=== PATIENT | female | born 1985 | race Caucasian/White ===

== ENCOUNTER 2017-08-16 08:56 | Emergency (ER) | payer MEDICAID ==
[~2017-08-16] VITALS: Ht 157.5 cm; Wt 102.1 kg
[2017-08-16 09:13] VITALS: BP 98/60
[2017-08-16] MEDS ORDERED: IPRATROPIUM BROM 0.5 MG/2.5ML INH SOL NEB ONE (09:30)
[2017-08-16] MEDS ORDERED: ALBUTEROL SULF 2.5 MG/0.5ML(0.5%) NEB SOLN NEB ONE (09:30)
== END 2017-08-16 10:21 | disposition home or self-care (01) ==
LOC: ER 08:56
DX: J40 Bronchitis, not specified as acute or chronic (principal); J45.909 Unspecified asthma, uncomplicated
CPT/HCPCS: 71020; 94640

== ENCOUNTER 2018-08-04 22:10 | Emergency (ER) | payer MEDICAID ==
[~2018-08-04] VITALS: Ht 157.5 cm; Wt 99.8 kg
[2018-08-04 22:42] VITALS: BP 116/70
[2018-08-04] MEDS ORDERED: cefTRIAXone SOD 1,000 MG VL IM ONE (23:30)
[2018-08-04] MEDS ORDERED: methylPREDNISolone SOD SUCC 125 MG/2 ML VL IM ONE (23:30)
== END 2018-08-04 23:57 | disposition home or self-care (01) ==
LOC: ER 22:10
DX: T78.49XA Other allergy, initial encounter (principal); R21 Rash and other nonspecific skin eruption; J45.909 Unspecified asthma, uncomplicated; X58.XXXA Exposure to other specified factors, initial encounter
CPT/HCPCS: 96372; 99284; J0696; J2930

== ENCOUNTER 2018-09-17 20:22 | Emergency (ER) | payer MEDICAID ==
[~2018-09-17] VITALS: Ht 157.5 cm; Wt 99.8 kg
[2018-09-17 20:57] VITALS: BP 122/74
== END 2018-09-17 23:00 | disposition home or self-care (01) ==
LOC: ER 20:22
DX: M54.41 Lumbago with sciatica, right side (principal); J45.909 Unspecified asthma, uncomplicated
CPT/HCPCS: 72131

== ENCOUNTER 2019-01-01 14:40 | Emergency (ER) | payer MEDICAID ==
[~2019-01-01] VITALS: Ht 157.5 cm; Wt 99.8 kg
[2019-01-01 14:45] VITALS: BP 154/87
[2019-01-01] MEDS ORDERED: ALBUTEROL SULF 2.5 MG/0.5ML(0.5%) NEB SOLN NEB ONE (19:30)
[2019-01-01] MEDS ORDERED: IPRATROPIUM BROM 0.5 MG/2.5ML INH SOL NEB ONE (19:30)
[2019-01-01] MEDS ORDERED: methylPREDNISolone SOD SUCC 125 MG/2 ML VL IM ONE (19:45)
== END 2019-01-01 20:19 | disposition home or self-care (01) ==
LOC: ER 14:47
DX: J20.9 Acute bronchitis, unspecified (principal)
CPT/HCPCS: 71046; 94640; 96372; 99283; J2930; J7611; J7644

== ENCOUNTER 2019-01-09 14:22 | Emergency (ER) | payer MEDICAID ==
[~2019-01-09] VITALS: Ht 157.5 cm; Wt 99.8 kg
[2019-01-09] MEDS ORDERED: ALBUTEROL SULF 2.5 MG/0.5ML(0.5%) NEB SOLN NEB ONE ×2 (14:45→19:15)
[2019-01-09] MEDS ORDERED: IPRATROPIUM BROM 0.5 MG/2.5ML INH SOL NEB ONE ×2 (14:45→19:15)
[2019-01-09] MEDS ORDERED: KETOROLAC TROMETH 60MG/2ML VIAL IM ONE (19:15)
[2019-01-09] MEDS ORDERED: methylPREDNISolone SOD SUCC 125 MG/2 ML VL IM ONE (19:15)
[2019-01-09] MEDS ORDERED: cefTRIAXone SOD 1,000 MG VL IM ONE (19:15)
[2019-01-09 19:53] VITALS: BP 124/55
== END 2019-01-09 20:03 | disposition home or self-care (01) ==
LOC: ER 14:28
DX: J40 Bronchitis, not specified as acute or chronic (principal); R51 Headache
CPT/HCPCS: 71046; 94640; 96372; 99284; J0696; J1885; J2930; J7611; J7644

== ENCOUNTER 2019-10-04 19:15 | Emergency (ER) | payer MEDICAID ==
[~2019-10-04] VITALS: Ht 157.5 cm; Wt 99.8 kg
[2019-10-04 19:34] VITALS: BP 118/64
[2019-10-04] MEDS ORDERED: DexAMETHasone SOD PHOS 10MG/1ML VIAL INJ IM ONE (21:00)
[2019-10-04] MEDS: IPRATROPIUM BROM 0.5 MG/2.5ML INH SOL NEB ONE ×2 (21:01→21:24)
[2019-10-04] MEDS: ALBUTEROL SULF 2.5 MG/0.5ML(0.5%) NEB SOLN NEB ONE ×2 (21:01→21:24)
[2019-10-04] MEDS: ACETAMINOPHEN/CODEINE#3 (300/30mg) TAB PO ONE ×2 (21:34→21:43)
== END 2019-10-04 21:35 | disposition home or self-care (01) ==
LOC: ER 19:15
DX: J45.901 Unspecified asthma with (acute) exacerbation (principal); J06.9 Acute upper respiratory infection, unspecified
CPT/HCPCS: 94640; 96372; 99283; J1100; J7611; J7644

== ENCOUNTER 2023-03-21 10:33 | Emergency (ER) | payer MEDICAID ==
[~2023-03-21] VITALS: Ht 157.5 cm; Wt 100.2 kg
[2023-03-21] MEDS ORDERED: HYDROcodone-ACET 5/325MG TAB PO ONE (11:00)
[2023-03-21] MEDS ORDERED: SODIUM CHLORIDE 0.9% 1,000 ML IV ONE (11:00)
[2023-03-21] MEDS ORDERED: ONDANSETRON ODT 4 MG TAB PO ONE (11:00)
[2023-03-21 11:13] LABS: Urine Bacteria FEW /hpf (None Seen); Urine Blood Negative /uL (Negative); Urine Mucus FEW (None Seen); Urine Specific Gravity 1.021 (1.001-1.035); Urine WBC 3 /hpf (0 - 5)
[2023-03-21 11:32] LABS: Basophils # (auto) 0 10 ^3/uL (0-0.2); Basophils % (auto) 0.3 % (0.0-2.0); Eosinophils # (auto) 0.2 10 ^3/uL (0-0.8); Eosinophils % (auto) 2.3 % (0.0-7.0); Hematocrit 44.1 % (36.0-46.0); Hemoglobin 14.8 g/dL (12.2-16.2); Lymphocytes # (auto) 1.7 10 ^3/uL (0.4-5.4); Lymphocytes % (auto) 19.4 % (10.0-50.0); Mean Corpuscular Hemoglobin 30.7 pg (28.0-32.0); Mean Corpuscular Hgb Conc. 33.5 g/dL (32.0-36.0); Mean Corpuscular Volume 91.7 fL (80.0-100.0); Monocytes # (auto) 0.5 10 ^3/uL (0-1.3); Monocytes % (auto) 5.3 % (0.0-12.0); Neutrophils # (auto) 6.3 10 ^3/uL (1.6-8.6); Neutrophils % (auto) 72.7 % (37.0-80.0); Nucleated Red Blood Cells % 0.1 %; Red Blood Cells 4.81 10^6/uL (4.0-5.20); Red Cell Distribution Width 14.1 % (11.8-14.3); White Blood Cell 8.7 10^3/uL (4.4-10.8)
[2023-03-21 12:19] LABS: Potassium 3.9 mmol/L (3.5-5.1)
[2023-03-21 12:29] LABS: Albumin 3.7 g/dL (3.4-5.0); BUN/Creatinine Ratio 10.8 (10.0-20.0); Bilirubin, Total 0.4 mg/dL (0.2-1.0); Calcium 8.9 mg/dL (8.5-10.1); Total Protein 7.1 g/dL (6.4-8.2)
[2023-03-21] MEDS ORDERED: IOHEXOL 300 MG/ML 100ML BOTTLE IJ ONE (13:26)
[2023-03-21] MEDS ORDERED: MAALOX PLUS or MAALOX 30 ML PO ONE (14:30)
[2023-03-21] MEDS ORDERED: BISM262C44 PO (16:09)
[2023-03-21 16:15] VITALS: BP 114/81
== END 2023-03-21 16:18 | disposition home or self-care (01) ==
LOC: ER 10:33
DX: K52.9 Noninfective gastroenteritis and colitis, unspecified (principal); K80.50 Calculus of bile duct without cholangitis or cholecystitis without obstruction; J45.909 Unspecified asthma, uncomplicated; R10.2 Pelvic and perineal pain
CPT/HCPCS: 36415; 74177; 80053; 81001; 83690; 84702; 85025; 96360; 99285; J7030; Q0162; Q9967

== ENCOUNTER 2024-09-02 19:50 | Emergency (ER) | payer MEDICAID ==
[~2024-09-02] VITALS: Ht 157.5 cm; Wt 92.6 kg
[~2024-09-02 19:50] MED LIST: BISM262C44 PO
[2024-09-02 20:24] VITALS: BP 126/80; PULSE 77; RESP 16; TEMP 98.1; O2SAT 98
[2024-09-02] MEDS ORDERED: METH4PAK PO (20:46)
[2024-09-02] MEDS ORDERED: AZIT-185 PO (20:46)
[2024-09-02] MEDS ORDERED: ALBUAER3 IN (20:46)
[2024-09-02] MEDS ORDERED: AZIT-43 PO (20:56)
== END 2024-09-02 21:02 | disposition home or self-care (01) ==
LOC: ER 19:50
DX: J45.909 Unspecified asthma, uncomplicated (principal); J22 Unspecified acute lower respiratory infection

== ENCOUNTER 2024-10-06 19:34 | Emergency (ER) | payer MEDICAID ==
[~2024-10-06] VITALS: Ht 157.5 cm; Wt 90.0 kg
[~2024-10-06 19:34] MED LIST changes: +ALBUAER3 IN; +AZIT-43 PO; +METH4PAK PO
--- NOTE | 2024-10-06 19:51 | ED.PDOC ---
History of Present Illness HPI Comments 38 y.o female with PMH of asthma, presents to the ED for a chief complaint of a productive cough with white phlegm that started 3 days ago. Patient states mild SOB, but denies any chest pain, fever, chills, nausea, vomiting, or recent contact exposure. Patient denies any recent travel and states that she does not believe that this is an asthma exacerbation. Patient has no other complaints at this time. Vital signs were stable at arrival. Time Seen by MD: 19:46 Primary Care Provider: UNKNOWN Reviewed Notes: Nurses Notes, Medications, Allergies Allergies: Coded Allergies: NO KNOWN ALLERGIES (Unverified , 08/04/18) Home Meds Active Scripts Albuterol Sulfate (VENTOLIN MDI) 90 Mcg Ih, 90 MCG IN QID for 30 Days, #1 INH Prov:RAFAEL GILES PNEUMATIC TUBE REPAIRER 09/02/24 Methylprednisolone (Medrol Dosepak) 4 Mg Clifford, 4 MG PO UD for 6 Days, #21 TAB UAD Prov:RAFAEL GILES PNEUMATIC TUBE REPAIRER 09/02/24 Azithromycin (Azithromycin) 250 Mg Tab, 250 MG PO DAILY PRN MDD 500 for 5 Days, #6 TAB 0 Refills 2 TABLETS ORALLY ON DAY ONE, THEN 1 TABLET ORALLY DAILY FOR 4 DAYS Prov:RAFAEL GILES PNEUMATIC TUBE REPAIRER 09/02/24 Bismuth Subsalicylate (PEPTO-BISMOL TO-GO) 262 Mg Chw, 262 MG PO 5XD for 6 Days, #5 TAB.CHEW Prov:YOLANDA PINO MD 03/21/23 Information Source: Patient Mode of Arrival: Ambulatory Severity: Moderate Timing: Days (3) Duration: Since onset Prehospital treatment: None Past Medical History PAST MEDICAL HISTORY: Asthma Surgical History: Denies all surgeries DIRECTOR OF STUDENT AFFAIRS History: Other Family History Family History: Unknown Social History Smoker: Non-Smoker Alcohol: Denies ETOH Use Drugs: Denies Drug Use Lives In: Home Constitutional: denies: chills, diaphoresis, fatigue, fever, malaise, sweats, weakness, others EENTM: denies: blurred vision, double vision, ear bleeding, ear discharge, ear drainage, ear pain, ear ringing, eye pain, eye redness, hearing loss, mouth pain, mouth swelling, nasal discharge, nose bleeding, nose congestion, nose pain, photophobia, tearing, throat pain, throat swelling, voice changes, others Respiratory: reports: cough, shortness of breath; denies: hemoptysis, orthopnea, SOB at rest, SOB with excertion, stridor, wheezing, others Cardiovascular: denies: chest pain, dizzy spells, diaphoresis, Dyspnea on exertion, edema, irregular heart beat, left arm pain, lightheadedness, palpitations, PND, syncope, others Gastrointestinal: denies: abdomen distended, abdominal pain, blood streaked bowels, constipated, diarrhea, dysphagia, difficulty swallowing, hematemesis, melena, nausea, poor appetite, poor fluid intake, rectal bleeding, rectal pain, vomiting, others Neurological: denies: dizziness, fainting, headache, left sided numbness, left sided weakness, numbness, paresthesia, pre-existing deficit, right sided numbness, right sided weakness, seizure, speech problems, tingling, tremors, weakness, others Musculoskeletal: denies: back pain, gout, joint pain, joint swelling, muscle pain, muscle stiffness, neck pain, others Integumetry: denies: bruises, change in color, change in hair/nails, dryness, laceration, lesions, lumps, rash, wounds, others Allergic/Immunocompromised: denies: Difficulty Healing, Frequent Infections, Hives, Itching, others Hematologic/Lymphatic: denies: anemia, blood clots, easy bleeding, easy bruising, swollen glands, others Endocrine: denies: excessive hunger, excessive sweating, excessive thirst, excessive urination, flushing, intolerance to cold, intolerance to heat, unexplained weight gain, unexplained weight loss, others Psychiatric: denies: anxiety, bipolar disorder, depression, hopeless, panic disorder, schizophrenia, sleepless, suicidal, others All Other Systems: Reviewed and Negative Physical Exam General Appearance: Mild Distress (Moderate distress due to cough and chest discomfort concerns.), Obese HEENT: Normal ENT Inspection, Pharynx Normal, TMs Normal Neck: Full Range of Motion, Non-Tender, Normal, Normal Inspection Respiratory: Chest Non-Tender, Lungs Clear, No Accessory Muscle Use, No Respiratory Distress, Normal Breath Sounds, Other (Unremarkable auscultation bilateral lung montano.) Cardiovascular: No Edema, No JVD, No Murmur, No Gallop, Normal Peripheral Pulses, Regular Rate/Rhythm Breast Exam: Deferred Gastrointestinal: No Organomegaly, Non Tender, No Pulsatile Mass, Normal Bowel Sounds, Soft Genitalia: Deferred Pelvic: Deferred Rectal: Deferred Extremities: No calf tenderness, Normal capillary refill, Normal inspection, Normal range of motion, Non-tender, No pedal edema Musculoskeletal : Apperance: Normal Neurologic: Alert, braille duplicating machine operator II-XII nml as Tested, No Motor Deficits, Normal Affect, Normal Mood, No Sensory Deficits Cerebellar Function: Normal Reflexes: Normal Skin: Dry, Normal Color, Warm Lymphatic: No Adenopathy Was a procedure done? Was a procedure done?: No Differential Dx Considerations may include: URI, Influenza, Asthma, Bronchitis X-Ray, Labs, Meds, VS Vital Signs Date Time Temp Pulse Resp B/P (MAP) Pulse Ox O2 Delivery O2 Flow Rate FiO2 10/06/24 20:26 Room Air* 0 21 10/06/24 20:26 20 98 Room Air* 0 21 10/06/24 20:11 98.0 92 18 132/75 (94) 97 98.0 10/06/24 19:50 98.6 90 16 128/76 (93) 97 10/06/24 19:50 16 97 Room Air* 0 21 Current Medications Medications (Trade) Dose Ordered Sig/Abdifatah Route Start Time Stop Time Status Last Admin Albuterol (Ventolin Medneb) 5 mg ONCE ONCE NEB 10/06/24 20:00 10/06/24 20:01 DC 10/06/24 20:25 Ipratropium [place] (Atrovent Medneb) 0.5 mg ONCE ONCE NEB 10/06/24 20:00 10/06/24 20:01 DC 10/06/24 20:26 Dexamethasone Sodium Phosphate (Decadron Injection) 10 mg ONCE ONCE IM 10/06/24 20:00 10/06/24 20:01 DC 10/06/24 20:13 X-Ray, Labs, Meds, VS Comment All imaging studies were evaluated by me personally. Chest x-ray was unremarkable for any acute pulmonary process or consolidation. Patient appears to be suffering from a viral upper respiratory illness. Heart score is 0. Time of 1ST Reevaluation: 21:02 Reevaluation 1ST: Improved Consultation: PCP Patient Education/Counseling: Diagnosis, Treatment, Prognosis Family Education/Counseling: Diagnosis, Treatment, No Family Present Departure 1 Departure Time of Disposition: 21:03 Impression: Primary Impression: Viral upper respiratory illness Disposition: HOME / SELF CARE / HOMELESS Condition: Stable Additional Instructions: Advised patient utilize medication as needed as well as good hydration and healthy nutrition throughout illness event. e-Prescriptions Benzonatate (Benzonatate) 100 Mg Cap 1 CAP PO Q6HP PRN, #20 CAP Prov: JESSY HILL PAC 10/06/24 Discharged With: Self, Friend Critical Care Note Critical Care Time?: No Stability Stability form required: No I personally scribed for JESSY HILL PAC ([email or web address]) on 10/06/24 at 19:51. Electronically submitted by Cyndi Clement ([email or web address]). JESSY HILL PAC Oct 06, 2024 19:51
[2024-10-06 20:11] VITALS: BP 132/75; PULSE 92; TEMP 98
[2024-10-06] MEDS: DexAMETHasone SOD PHOS 10MG/1ML VIAL INJ IM ONE (20:13)
[2024-10-06] MEDS: ALBUTEROL SULF 2.5 MG/0.5ML(0.5%) NEB SOLN NEB ONE (20:25)
[2024-10-06 20:26] VITALS: RESP 20; O2SAT 98
[2024-10-06] MEDS: IPRATROPIUM BROM 0.5 MG/2.5ML INH SOL NEB ONE (20:26)
--- NOTE | 2024-10-06 20:49 | DVH ---
CHEST RADIOGRAPH Indication:Shortness of breath Technique: Frontal and lateral view of the chest was obtained Comparison: None FINDINGS: Lines and Tubes: None Lungs: Clear Pleura: No effusion. No pneumothorax. Cardiomediastinal contours: Unremarkable Bones: Unremarkable IMPRESSION: No evidence of acute disease.
[2024-10-06] MEDS ORDERED: BENZ100C97 PO (21:06)
== END 2024-10-06 21:27 | disposition home or self-care (01) ==
LOC: ER 19:34
DX: J06.9 Acute upper respiratory infection, unspecified (principal); B97.89 Other viral agents as the cause of diseases classified elsewhere; J45.909 Unspecified asthma, uncomplicated; Z79.899 Other long term (current) drug therapy
CPT/HCPCS: 71046; 94640; 96372; 99283; J1100

== ENCOUNTER 2025-11-23 12:05 | Emergency (ER) | payer MEDICAID ==
[~2025-11-23] VITALS: Ht 157.5 cm; Wt 107.6 kg
[~2025-11-23 12:05] MED LIST changes: +BENZ100C97 PO
[2025-11-23 13:00] VITALS: BP 137/97; PULSE 89; RESP 14; TEMP 98.5; O2SAT 98
[2025-11-23] MEDS ORDERED: PROM1SOL4 PO (13:14)
[2025-11-23] MEDS ORDERED: PRED20TA2 PO (13:14)
[2025-11-23] MEDS ORDERED: AZIT500T66 PO (13:14)
--- NOTE | 2025-11-23 13:17 | ED.PDOC ---
Eye-HPI HPI Comments A 40 YEAR OLD FEMALE PRESENTS TO THE ED WITH COMPLAINT OF SORE THROAT AND COUGH. PATIENT STATES HE HAS BEEN EXPERIENCING A SORE THROAT, RIGHT EAR PAIN, BODY ACHES, COUGH, AND NASAL CONGESTION FOR THE PAST 3 DAYS. PATIENT DENIES FEVER, CHILLS, SHORTNESS OF BREATH, CHEST PAIN, ABDOMINAL PAIN, NAUSEA, VOMITING, HEADACHE, OR OTHER COMPLAINTS. NO OTHER SYMPTOMS OR MODIFYING FACTORS AT THIS TIME. PATIENT IS ALERT, ORIENTED X 4, AND HAS STEADY GAIT. Chief Complaint: Flu like Time Seen by MD: 12:18 Primary Care Provider: UNKNOWN Reviewed Notes: Nurses Notes, Medications, Allergies Allergies: Coded Allergies: NO KNOWN ALLERGIES (Unverified , 08/04/18) Home Meds Active Scripts Prednisone (Prednisone) 20 Mg Tab, 60 MG PO DAILY, #15 TAB Prov:CHACE ROMERO 11/23/25 Promethazine-Dm (Promethazine Dm 6.25-15 mg/5Ml) 1 Sana Sana, 10 ML PO TID, #180 ML Prov:CHACE ROMERO 11/23/25 Azithromycin (Azithromycin) 500 Mg Tab, 1 TAB PO DAILY, #5 TAB Prov:CHACE ROMERO 11/23/25 Benzonatate (Benzonatate) 100 Mg Cap, 1 CAP PO Q6HP PRN, #20 CAP Prov:JESSY HILL 10/06/24 Albuterol Sulfate (VENTOLIN MDI) 90 Mcg Ih, 90 MCG IN QID for 30 Days, #1 INH Prov:RAFAEL GILES 09/02/24 Methylprednisolone (Medrol Dosepak) 4 Mg Clifford, 4 MG PO UD for 6 Days, #21 TAB UAD Prov:RAFAEL GILES 09/02/24 Azithromycin (Azithromycin) 250 Mg Tab, 250 MG PO DAILY PRN MDD 500 for 5 Days, #6 TAB 0 Refills 2 TABLETS ORALLY ON DAY ONE, THEN 1 TABLET ORALLY DAILY FOR 4 DAYS Prov:RAFAEL GILES 09/02/24 Bismuth Subsalicylate (PEPTO-BISMOL TO-GO) 262 Mg Chw, 262 MG PO 5XD for 6 Days, #5 TAB.CHEW Prov:YOLANDA PINO MD 03/21/23 Information Source: Patient Mode of Arrival: Ambulatory Timing: Days Duration: Since onset, Days Prehospital treatment: None Quality: Pain, Red Lids: Normal Conjunctiva: Normal Cornea: Normal Pupils: Normal EOM: Normal Fundus: Normal Slit lamp exam: Normal Anterior chamber: Normal Mouth Location: Pharynx Mouth: Normal ENT Ear Exam: Normal, Normal, Normal Nose: Normal Sinuses: Normal Oropharynx: Tonsillar hypertrophy, Red Onset: Spontaneous Throat Exposed to: None History of: None Last Tetanus: Unknown Modifying factors: Nothing Associated signs and symptoms: Nasal Symptoms, Sore Throat, Ear Pain Past Medical History PAST MEDICAL HISTORY: Asthma Surgical History: Denies all surgeries CENTER ADMINISTRATOR History: Denies all CENTER ADMINISTRATOR Hx Family History Family History: Reviewed,noncontributory to illness Social History Smoker: Non-Smoker Alcohol: Denies ETOH Use Drugs: Denies Drug Use Lives In: Home Constitutional: denies: chills, diaphoresis, fatigue, fever, malaise, sweats, weakness, others EENTM: reports: ear pain, nose congestion, throat pain, throat swelling; denies: blurred vision, double vision, ear bleeding, ear discharge, ear drainage, ear ringing, eye pain, eye redness, hearing loss, mouth pain, mouth swelling, nasal discharge, nose bleeding, nose pain, photophobia, tearing, voice changes, others Respiratory: reports: cough; denies: hemoptysis, orthopnea, SOB at rest, shortness of breath, SOB with excertion, stridor, wheezing, others Cardiovascular: denies: chest pain, dizzy spells, diaphoresis, Dyspnea on exertion, edema, irregular heart beat, left arm pain, lightheadedness, palpitations, PND, syncope, others Gastrointestinal: denies: abdomen distended, abdominal pain, blood streaked bowels, constipated, diarrhea, dysphagia, difficulty swallowing, hematemesis, melena, nausea, poor appetite, poor fluid intake, rectal bleeding, rectal pain, vomiting, others Genitourinary: denies: abnormal vagina bleeding, burning, dyspareunia, dysuria, flank pain, frequency, hematuria, incontinence, pain, , vagina disch arge, urgency, others Neurological: denies: dizziness, fainting, headache, left sided numbness, left sided weakness, numbness, paresthesia, pre-existing deficit, right sided numbness, right sided weakness, seizure, speech problems, tingling, tremors, weakness, others Musculoskeletal: reports: muscle pain; denies: back pain, gout, joint pain, joint swelling, muscle stiffness, neck pain, others Integumetry: denies: bruises, change in color, change in hair/nails, dryness, laceration, lesions, lumps, rash, wounds, others Allergic/Immunocompromised: denies: Difficulty Healing, Frequent Infections, Hives, Itching, others Hematologic/Lymphatic: denies: anemia, blood clots, easy bleeding, easy bruising, swollen glands, others Endocrine: denies: excessive hunger, excessive sweating, excessive thirst, excessive urination, flushing, intolerance to cold, intolerance to heat, unexplained weight gain, unexplained weight loss, others Psychiatric: denies: anxiety, bipolar disorder, depression, hopeless, panic disorder, schizophrenia, sleepless, suicidal, others All Other Systems: Reviewed and Negative Physical Exam General Appearance: No Apparent Distress, Normal HEENT: PERRL/EOMI, Pharyngeal Erythema (TONSILLAR SWELLING, NO EXUDATES. ), TMs Normal Neck: Full Range of Motion, Non-Tender, Normal, Normal Inspection Respiratory: Chest Non-Tender, Lungs Clear, No Accessory Muscle Use, No Respiratory Distress, Normal Breath Sounds Cardiovascular: No Edema, No JVD, No Murmur, No Gallop, Normal Peripheral Pulses, Regular Rate/Rhythm Breast Exam: Deferred Gastrointestinal: No Organomegaly, Non Tender, No Pulsatile Mass, Normal Bowel Sounds, Soft Genitalia: Deferred Pelvic: Deferred Rectal: Deferred Extremities: No calf tenderness, Normal capillary refill, Normal inspection, Normal range of motion, Non-tender, No pedal edema Musculoskeletal : Apperance: Normal Neurologic: Alert, flat folding machine operator II-XII nml as Tested, No Motor Deficits, Normal Affect, Normal Mood, No Sensory Deficits Cerebellar Function: Normal Reflexes: Normal Skin: Dry, Normal Color, Warm Peripheral Pulses: 2+ carotid (R), 2+ carotid (L) Lymphatic: No Adenopathy Was a procedure done? Was a procedure done?: No EENT DIFF Eye: N/A Ear: Cerumen Impaction, Otitis Externa, Otitis Media, Pharyngitis, Sinusitis Nose: N/A Mouth: N/A Sore Throat: Pharyngitis, Streptococcal, Viral Pharyngitis, URI X-Ray, Labs, Meds, VS Vital Signs Date Time Temp Pulse Resp B/P (MAP) Pulse Ox O2 Delivery O2 Flow Rate FiO2 11/23/25 13:00 89 14 98 Room Air 11/23/25 13:00 98.5 89 14 137/97 (110) 98 98.5 11/23/25 12:16 98.5 89 14 137/97 98 98.5 X-Ray, Labs, Meds, VS Comment EXTERNAL MEDICAL RECORDS REVIEWED: [NONE] INDEPENDENT HISTORIANS: [NONE] SOCIAL DETERMINANTS OF HEALTH: [NONE] LABS ORDERED: NONE REVIEWED AND INTERPRETED RESULTS: NONE IMAGING ORDERED: NONE TREATMENTS ORDERED: NONE PROCEDURES PERFORMED: NONE CRITICAL CARE TIME: NONE I HAVE DISCUSSED THE PATIENT WITH THE ATTENDING PHYSICIAN DR. MORRIS AND HE AGREES WITH THE PATIENT'S PLAN OF CARE AND DISPOSITION. BASED ON HISTORY OF PRESENT ILLNESS, AND PHYSICAL EXAM, PATIENT WILL BE DISCHARGED HOME. DISCUSSED PLAN FOR DISCHARGE HOME WITH RX [AZITHROMYCIN, PREDNISONE, AND PROMETHAZINE DM]. MEDICATION WARNINGS GIVEN. SHARED DECISION MAKING: PATIENT INSTRUCTED TO FOLLOW UP WITH PRIMARY CARE PROVIDER IN 1-2 DAYS FOR RE-EVALUATION OF SYMPTOMS. PATIENT VERBALIZES UNDERSTANDING TO RETURN TO ED FOR NEW OR WORSENING SYMPTOMS OR IF FOLLOW UP WITH PCP CANNOT BE OBTAINED. PATIENT FEELS COMFORTABLE GOING HOME AT THIS TIME. ALL QUESTIONS ADDRESSED AT TIME OF DISCHARGE. Time of 1ST Reevaluation: 13:18 Reevaluation 1ST: Improved Patient Education/Counseling: Diagnosis, Treatment, Need For Follow Up Family Education/Counseling: Diagnosis, Treatment, Need For Follow Up Medical Screening: No EMC Exist At This Time SEPSIS Sepsis Screen Date sepsis recognized/suspect: Nov 23, 2025 Time Sepsis recognized/suspect: 1217 Recent Procedure: No On Antibiotic Therapy: No Respiratory Rate >20: No Heart Rate >90: No Temp<36 C (96.8 F) or >38.3 C: No SBP <90 or MAP <65 mmHG: No New Acute Mental Status Change: No Is the patient on CPAP, BIPAP,: No Vital Signs Date Time Temp Pulse Resp B/P (MAP) Pulse Ox O2 Delivery O2 Flow Rate FiO2 11/23/25 13:00 89 14 98 Room Air 11/23/25 13:00 98.5 89 14 137/97 (110) 98 98.5 11/23/25 12:16 98.5 89 14 137/97 98 98.5 Departure 1 Departure Time of Disposition: 13:20 Impression: Primary Impression: Acute tonsillitis Qualified Codes: J03.90 - Acute tonsillitis, unspecified Additional Impression: URI (upper respiratory infection) Qualified Codes: J03.90 - Acute tonsillitis, unspecified Disposition: HOME / SELF CARE / HOMELESS Condition: Stable Additional Instructions: FOLLOW-UP WITH PCP IN 1 TO 2 DAYS. TAKE MEDICATIONS PRESCRIBED. RETURN TO ED FOR ANY NEW OR WORSENING SYMPTOMS. e-Prescriptions Prednisone (Prednisone) 20 Mg Tab 60 MG PO DAILY, #15 TAB Prov: CHACE ROMERO 11/23/25 Promethazine-Dm (Promethazine Dm 6.25-15 mg/5Ml) 1 Sana Sana 10 ML PO TID, #180 ML Prov: CHACE ROMERO 11/23/25 Azithromycin (Azithromycin) 500 Mg Tab 1 TAB PO DAILY, #5 TAB Prov: CHACE ROMERO 11/23/25 Discharged With: Self Critical Care Note Critical Care Time?: No Stability Stability form required: No I personally scribed for CHACE ROMERO ([email or web address]) on 11/23/25 at 13:17. Electronically submitted by Boaz Landrum ([email or web address]). CHACE ROMERO Nov 23, 2025 13:17
== END 2025-11-23 13:22 | disposition home or self-care (01) ==
LOC: ER 12:05
DX: J03.90 Acute tonsillitis, unspecified (principal); J06.9 Acute upper respiratory infection, unspecified; J45.909 Unspecified asthma, uncomplicated; Z79.899 Other long term (current) drug therapy; Z79.52 Long term (current) use of systemic steroids